=== PATIENT | male | born 1990 | race Caucasian/White ===

== ENCOUNTER 2022-06-09 13:46 | Emergency (ER) | payer OTHER ==
[2022-06-09 14:32] LABS: BASOPHIL 0.6 % (0-2); EOSINOPHIL 4.6 % (0-5); HGB 12.8 g/dl (13.2-18.0); LYMPHOCYTE 35.5 % (15-48); MCH 31.4 pg (25.0-31.0); MCHC 33.7 g/dL (32.0-36.0); MCV 93.4 fL (78.0-100.0); MONOCYTE 9.6 % (0-12); MPV 9.7 fL (6.0-9.5); NEUTROPHIL 49.3 % (41-80); NRBC 0; PLT 308 K/uL (150-400); RBC 4.07 M/uL (4.70-6.00); RDW 12.6 % (11.5-14.0); WBC 5.2 K/uL (4.0-10.5)
[2022-06-09 14:36] LABS: BILIRUBIN 1+ mg/dL (NEGATIVE); BLOOD NEGATIVE Ery/uL (NEGATIVE); CLARITY CLEAR (CLEAR); COLOR YELLOW (YELLOW); GLUCOSE (U) NORMAL (NORMAL); LEUKOCYTES NEGATIVE Leu/uL (NEGATIVE); NITRITE NEGATIVE (NEGATIVE); PROTEIN NEGATIVE (NEGATIVE); SPECIFIC GRAVITY >=1.030 (1.001-1.030)
[2022-06-09 14:44] LABS: AMPHETAMINES POSITIVE (NEGATIVE); BARBITURATES NEGATIVE (NEGATIVE); ECSTASY (MDMA) NEGATIVE (NEGATIVE); MARIJUANA (THC) POSITIVE (NEGATIVE); METHADONE NEGATIVE (NEGATIVE); OPIATES NEGATIVE (NEGATIVE); OXYCODONE NEGATIVE (NEGATIVE)
[2022-06-09 16:47] LABS: BUN 11 mg/dL (7-18); BUN/CREAT RATIO (CALC) 15.9 RATIO; CHLORIDE 101 mmol/L (98-107); CO2 (BICARBONATE) 29 mmol/L (21-32); CREATININE 0.69 mg/dL (0.67-1.17); GLUCOSE 109 mg/dL (74-106); POTASSIUM 3.2 mmol/L (3.5-5.1)
[2022-06-09 16:52] LABS: ACETAMINOPHEN (TYLENOL) <2.0 ug/mL (10.0-30.0)
== END 2022-06-09 22:47 ==
LOC: FER 13:46
PROVIDERS: Nurse Practitioner Family
DX: R45.851 Suicidal ideations (principal); R45.850 Homicidal ideations; F20.9 Schizophrenia, unspecified; F17.210 Nicotine dependence, cigarettes, uncomplicated; Z88.8 Allergy status to other drugs, medicaments and biological substances; Z20.822 Contact with and (suspected) exposure to COVID-19
CPT/HCPCS: 36415; 80048; 80305; 81003; 85025; 99285; G0480; U0002